=== PATIENT | male | born 1985 | race Caucasian/White ===

== ENCOUNTER 2017-12-01 01:39 | Emergency (ER) | payer SELFPAY ==
[2017-12-01] MEDS ORDERED: HYDROCODONE/APAP 10/325 TAB ONE (02:01)
[2017-12-01 02:25] LABS: Absolute Lymphocytes (CBC) 1.2 K/uL (0.7-4.9); Absolute Monocytes 0.8 K/uL (0.1-1.3); Absolute Neutrophil 11.8 K/uL (1.8-8.0); Basophils % 0.4 % (0-1.3); Eosinophils % 0.4 % (0-4.4); Hematocrit 44.2 % (39.6-49.0); Lymphocytes % 8.3 % (15.3-44.8); MCH 30.6 pg (27.0-35.0); MCV 88.1 fL (80-100); MPV 7.4 fL (7.6-11.3); Monocytes % 5.8 % (3.3-12.3); RBC Red Blood Cell Count 5.02 M/uL (4.33-5.43)
[2017-12-01 02:33] LABS: Potassium 3.4 mmol/L (3.5-5.1)
[2017-12-01] MEDS ORDERED: PIPER/TAZO/NS 3.375gm 3.375 GM/100 ML BAG ONE (02:49)
--- NOTE | 2017-12-01 03:10 | ER ---
Nurse's Notes [facility] Name: Solis Boone Age: 32 yrs Sex: Male : 1985 Arrival Date: 12/01/2017 Time: 01:44 Bed 15 Private MD: Diagnosis: Cellulitis and acute lymphangitis, unspecified Presentation: 12/01 01:52 Presenting complaint: Patient states: left thumb with swelling, redness and pain X2 ak1 days after going fishing. Transition of care: patient was not received from another setting of care. Onset of symptoms was November 28, 2017. Risk Assessment: Do you want to hurt yourself or someone else? Patient reports no desire to harm self or others. Initial Sepsis Screen: Does the patient meet any 2 criteria? No. Patient's initial sepsis screen is negative. Does the patient have a suspected source of infection? No. Patient's initial sepsis screen is negative. Care prior to arrival: None. 01:52 Method Of Arrival: Ambulatory ak1 01:52 Acuity: MANUEL 4 ak1 Triage Assessment: 01:54 General: Appears in no apparent distress. uncomfortable, Behavior is calm, cooperative. ak1 Pain: Complains of pain in left hand. EENT: No signs and/or symptoms were reported regarding the EENT system. Neuro: No deficits noted. Cardiovascular: No deficits noted. Respiratory: No deficits noted. GI: No signs and/or symptoms were reported involving the gastrointestinal system. : No signs and/or symptoms were reported regarding the genitourinary system. Musculoskeletal: Range of motion: limited in IP of left thumb Swelling present in left hand. 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 - Social history:: Smoking status: Patient/guardian denies using tobacco. - Ebola Screening: : No symptoms or risks identified at this time. Screenin:55 Abuse screen: Denies threats or abuse. Denies injuries from another. Nutritional ak1 screening: No deficits noted. Tuberculosis screening: No symptoms or risk factors identified. Fall Risk None identified. Assessment: 02:01 General: See triage assessment. ao 02:56 Reassessment: Patient appears in no apparent distress at this time. Patient and/or ao family updated on plan of care and expected duration. Pain level reassessed. Patient is alert, oriented x 3, equal unlabored respirations, skin warm/dry/pink. 03:27 Reassessment: Phone report called to GUERLINE Hurley. Patient is waiting on EMS for ao transportation. 03:34 Reassessment: Hand off care to [facility]. Patient VS Stable. Patient AOX3. ao Patient had no questions at this time. Vital Signs: 01:51 BP 174 / 120; Pulse 96; Resp 18; Temp 98.1(O); Pulse Ox 100% on R/A; Weight 86.18 kg ak1 (R); Height 6 ft. 2 in. (187.96 cm) (R); Pain 10/10; 02:55 BP 157 / 115; Pulse 98; Resp 18; Pulse Ox 100% ; ao 03:27 BP 158 / 97; Pulse 87; Resp 16; Pulse Ox 100% on R/A; ao 01:51 Body Mass Index 24.39 (86.18 kg, 187.96 cm) ak1 ED Course: 01:44 Patient arrived in ED. es 01:50 Sloan Encarnacion MD is Attending Physician. gs 01:51 Arm band placed on Patient placed in an exam room, on a stretcher, on pulse oximetry, ak1 Patient notified of wait time. 01:53 Triage completed. ak1 01:55 Patient has correct armband on for positive identification. Bed in low position. Call ak1 light in reach. Side rails up X 1. Pulse ox on. NIBP on. 02:00 Randy Brower RN is Primary Nurse. ao 02:29 X-ray completed. Portable x-ray completed in exam room. Patient tolerated procedure mh1 well. 02:29 Hand Left 3 View XRAY In Process Unspecified. EDMS 02:42 initiated a transfer with Johnny at the [facility] transfer line for hand surgery. eb 02:50 connected with ED doctor for pt transfer consultation. eb 02:56 administrative approval given by Víctor Boss, patient to go to the ED for ED eb evaluation. number for report is [phone]. 03:35 No provider procedures requiring assistance completed. Patient transferred, IV remains ao in place. Administered Medications: 02:00 Drug: Madison 10 mg-325 mg 1 tabs Route: PO; ak1 03:00 Follow up: Response: No adverse reaction ao 02:59 Drug: Zosyn 3.375 grams Route: IVPB; Infused Over: 60 mins; Site: right antecubital; ao 03:27 Follow up: IV Status: Completed infusion; IV Intake: 100ml ao 03:26 Drug: vancoMYCIN 1 grams Route: IVPB; Infused Over: 2 hrs; Site: right antecubital; ao 03:37 Follow up: IV Status: Infusion continued upon transfer ao Intake: 03:27 IV: 100ml; Total: 100ml. ao Outcome: 03:10 ER care complete, transfer ordered by . 03:35 Transferred by ground EMS to [facility], Transfer form ao completed. X-rays sent w/ patient. 03:35 Condition: stable 03:35 Instructed on the need for transfer. 03:36 Patient left the ED. ao Signatures: Dispatcher [employer] Monique Parra Martha [facility] Velia Moreland RN RN ny1 Randy Brower RN RN ao Sloan Encarnacion MD MD Breanna Mitchell
--- NOTE | 2017-12-01 03:10 | EDPHYS ---
Physician Documentation [facility] Name: Solis Boone Age: 32 yrs Sex: Male : 1985 Arrival Date: 12/01/2017 Time: 01:44 Bed 15 Private MD: ED Physician Sloan Encarnacion HPI: 12/01 03:05 This 32 yrs old Male presents to ER via Ambulatory with complaints of gs INFECTED THUMB. 03:05 The patient or guardian reports swelling, tenderness. The complaints affect the dorsal gs aspect of distal phalanx of left thumb, dorsal aspect of proximal phalanx of left thumb, palmar aspect of distal phalanx of left thumb and palmar aspect of proximal phalanx of left thumb. Onset: The symptoms/episode began/occurred 1 week(s) ago. Modifying factors: the symptoms are aggravated by movement. Associated signs and symptoms: Pertinent negatives: numbness distally. Severity of symptoms: At their worst the symptoms were severe, in the emergency department the symptoms are unchanged. The patient has not experienced similar symptoms in the past. 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 - Social history:: Smoking status: Patient/guardian denies using tobacco. - Ebola Screening: : No symptoms or risks identified at this time. ROS: 03:05 Constitutional: Positive for fever. gs 03:05 All other systems are negative. Exam: 03:05 Head/Face: Normocephalic, atraumatic. Eyes: Pupils equal round and reactive to light, gs extra-ocular motions intact. Lids and lashes normal. Conjunctiva and sclera are non-icteric and not injected. Cornea within normal limits. Periorbital areas with no swelling, redness, or edema. ENT: Nares patent. No nasal discharge, no septal abnormalities noted. Tympanic membranes are normal and external auditory canals are clear. Oropharynx with no redness, swelling, or masses, exudates, or evidence of obstruction, uvula midline. Mucous membranes moist. Neck: Trachea midline, no thyromegaly or masses palpated, and no cervical lymphadenopathy. Supple, full range of motion without nuchal rigidity, or vertebral point tenderness. No Meningismus. Chest/axilla: Normal chest wall appearance and motion. Nontender with no deformity. No lesions are appreciated. Cardiovascular: Regular rate and rhythm with a normal S1 and S2. No gallops, murmurs, or rubs. Normal PMI, no JVD. No pulse deficits. Respiratory: Lungs have equal breath sounds bilaterally, clear to auscultation and percussion. No rales, rhonchi or wheezes noted. No increased work of breathing, no retractions or nasal flaring. Abdomen/GI: Soft, non-tender, with normal bowel sounds. No distension or tympany. No guarding or rebound. No evidence of tenderness throughout. Back: No spinal tenderness. No costovertebral tenderness. Full range of motion. Neuro: Awake and alert, GCS 15, oriented to person, place, time, and situation. Cranial nerves II-XII grossly intact. Motor strength 5/5 in all extremities. Sensory grossly intact. Cerebellar exam normal. Normal gait. 03:05 Constitutional: The patient appears alert, awake, uncomfortable. 03:05 Musculoskeletal/extremity: Extremities: noted in the palmar aspect of proximal phalanx of left thumb and palmar aspect of distal phalanx of left thumb and dorsal aspect of proximal phalanx of left thumb and dorsal aspect of distal phalanx of left thumb: decreased ROM, erythema, pain, swelling, tenderness, ROM: limited active range of motion due to pain, limited passive range of motion due to pain, Pulses: are normal with no appreciated deficits, Tingling of extremity. 03:05 Skin: cellulitis, that is moderate, on the palmar aspect of proximal phalanx of left thumb and palmar aspect of distal phalanx of left thumb and dorsal aspect of proximal phalanx of left thumb and dorsal aspect of distal phalanx of left thumb. Vital Signs: 01:51 BP 174 / 120; Pulse 96; Resp 18; Temp 98.1(O); Pulse Ox 100% on R/A; Weight 86.18 kg ak1 (R); Height 6 ft. 2 in. (187.96 cm) (R); Pain 10/10; 02:55 BP 157 / 115; Pulse 98; Resp 18; Pulse Ox 100% ; ao 03:27 BP 158 / 97; Pulse 87; Resp 16; Pulse Ox 100% on R/A; ao 01:51 Body Mass Index 24.39 (86.18 kg, 187.96 cm) ak1 MDM: 01:50 Patient medically screened. 03:05 Differential diagnosis: closed fracture, cellulitis, abscess, felon. Data reviewed: vital signs, nurses notes. 12/01 02:00 Order name: CBC with Diff 12/01 02:00 Order name: Basic Metabolic Panel; Complete Time: 02:39 12/01 01:52 Order name: Hand Left 3 View XRAY 12/01 02:55 Order name: NPO; Complete Time: 02:59 Administered Medications: 02:00 Drug: Foster 10 mg-325 mg 1 tabs Route: PO; ak1 03:00 Follow up: Response: No adverse reaction ao 02:59 Drug: Zosyn 3.375 grams Route: IVPB; Infused Over: 60 mins; Site: right antecubital; ao 03:27 Follow up: IV Status: Completed infusion; IV Intake: 100ml ao 03:26 Drug: vancoMYCIN 1 grams Route: IVPB; Infused Over: 2 hrs; Site: right antecubital; ao 03:37 Follow up: IV Status: Infusion continued upon transfer ao Disposition: 12/01/17 03:10 Transfer ordered to [facility]. Diagnosis is Cellulitis and acute lymphangitis, unspecified. - Reason for transfer: Higher level of care. - Accepting physician is rachel. - Condition is Stable. - Problem is new. - Symptoms are unchanged. Signatures: Dispatcher [employer] [facility] Velia Moreland RN RN ak1 Randy Brower RN RN ao Starr, Gregory, MD MD Corrections: (The following items were deleted from the chart) 03:36 03:10 12/01/2017 03:10 Transfer ordered to [facility]. Diagnosis is Cellulitis and ao acute lymphangitis, unspecified. Reason for transfer: Higher level of care. Accepting physician is rachel. Condition is Stable. Problem is new. Symptoms are unchanged.
[2017-12-01] MEDS ORDERED: VANCOMYCIN 1 GM/250 ML BAG ONE (03:20)
[2017-12-01 03:47] VITALS: TEMP 98.1; O2SAT 100
[2017-12-01 03:49] VITALS: BP 158/97
[2017-12-01 03:49] LABS: Blood Morphology Comment NOT SEEN (NOT SEEN); Platelet Estimate ADEQ; Urine White Blood Cell Casts OK
--- NOTE | 2017-12-01 08:32 | RAD REPORT ---
EXAM DESCRIPTION: RAD -Hand Left 3 View - 12/01/2017 2:29 am CLINICAL HISTORY: Left hand pain status post spider bite FINDINGS: No fracture or dislocation is seen. No bony destructive lesion is seen. Soft tissue swelling involves the region of the thenar eminence
== END 2017-12-01 03:36 | disposition short-term general hospital (02) ==
LOC: ER 01:39
DX: L03.012 Cellulitis of left finger (principal); L03.022 Acute lymphangitis of left finger
CPT/HCPCS: 36415; 80048; 85025; 96365; 96375; 99285; J2543; J3370

== ENCOUNTER 2017-12-16 10:12 | Emergency (ER) | payer SELFPAY ==
--- NOTE | 2017-12-16 10:49 | ER ---
Nurse's Notes [facility] Name: Solis Boone Age: 32 yrs Sex: Male : 1985 Arrival Date: 12/16/2017 Time: 10:13 Bed 5 Private MD: Lupillo Puente Diagnosis: Open wound of hand Presentation: 12/16 10:26 Presenting complaint: Patient states: Pt is 1 week s/p left hand surgery, c/o increased hb pain and swelling over last 2 days. SX done at [facility]. Transition of care: patient was not received from another setting of care. Complicating Factors: There are no complicating factors for this patient. Onset of symptoms was December 16, 2017. Risk Assessment: Do you want to hurt yourself or someone else? Patient reports no desire to harm self or others. Initial Sepsis Screen: Does the patient meet any 2 criteria? No. Patient's initial sepsis screen is negative. Does the patient have a suspected source of infection? No. Patient's initial sepsis screen is negative. Care prior to arrival: None. 10:26 Method Of Arrival: [employer] Enforcement: Vick BURNHAM hb 10:26 Acuity: MANUEL 3 hb Triage Assessment: 10:30 General: Appears in no apparent distress. Behavior is calm, cooperative. Pain: Pain hb currently is 7 out of 10 on a pain scale. Neuro: Level of Consciousness is awake, alert, obeys commands, Oriented to person, place, time, situation. Cardiovascular: Capillary refill < 3 seconds Patient's skin is warm and dry. Respiratory: Airway is patent Trachea midline Respiratory effort is even, unlabored, Respiratory pattern is regular, symmetrical. Injury Description: Laceration sustained to left hand is clean, 7.6 to 20 cm long, post surgical x 1 week, not bleeding. Historical: - Allergies: 10:28 No Known Allergies; hb - Home Meds: 10:28 None [Active]; hb - PMHx: 10:28 left kidney only - defect; hb - PSHx: 10:28 Hand - LEFT; hb - Immunization history:: Adult Immunizations up to date, Last tetanus immunization: < 5 years ago. - Social history:: Smoking status: Patient uses tobacco products, smokes one-half pack cigarettes per day. - Ebola Screening: : No symptoms or risks identified at this time. Screenin:29 Abuse screen: Denies threats or abuse. Denies injuries from another. Nutritional hb screening: No deficits noted. Tuberculosis screening: No symptoms or risk factors identified. Fall Risk None identified. Assessment: 10:30 General: see triage assessment. hb 11:24 Reassessment: Patient appears in no apparent distress at this time. No changes from tw2 previously documented assessment. Patient and/or family updated on plan of care and expected duration. Pain level reassessed. Patient is alert, oriented x 3, equal unlabored respirations, skin warm/dry/pink. Vital Signs: 10:26 BP 151 / 105; Pulse 67; Resp 16; Pulse Ox 100% on R/A; Pain 8/10; hb 11:24 BP 136 / 85; Pulse 17; Pulse Ox 100% on R/A; tw2 ED Course: 10:13 Patient arrived in ED. mr 10:13 Lupillo Puente MD is Private Physician. mr 10:20 Fortino Best PA is PHCP. jrJessica 10:20 Eric Garza NP is PHCP. pm1 10:21 Ahmet Shahid MD is Attending Physician. jr8 10:26 Jessica López, GUERLINE is Primary Nurse. hb 10:28 Triage completed. hb 10:28 Arm band placed on right wrist. hb 10:29 Patient has correct armband on for positive identification. Bed in low position. Call hb light in reach. Side rails up X2. [employer] officer at bedside, pt in handcuffs. 11:15 No provider procedures requiring assistance completed. Patient did not have IV access hb during this emergency room visit. Administered Medications: No medications were administered Outcome: 10:49 Discharge ordered by . rach 11:24 Discharged to Law Enforcement tw2 11:24 Condition: stable 11:24 Discharge instructions given to patient, police, Instructed on discharge instructions, follow up and referral plans. Demonstrated understanding of instructions, follow-up care. 11:25 Patient left the ED. tw2 Signatures: Agustina Cameron mr Fortino Best PA PA jrEric Abdi NP TYPEWRITER RIBBON WINDER pm1 Jessica López, RN RN Elizabeth Cortés RN RN tw2
--- NOTE | 2017-12-16 10:50 | EDPHYS ---
Physician Documentation [facility] Name: Solis Boone Age: 32 yrs Sex: Male : 1985 Arrival Date: 12/16/2017 Time: 10:13 Bed 5 Private MD: Lupillo Puente ED Physician Ahmet Shahid HPI: 12/16 10:43 This 32 yrs old Male presents to ER via Law Enforcement with complaints of jr8 open wound to left hand. 10:43 Onset: The symptoms/episode began/occurred acutely, 1 week(s) ago. Severity of jr8 symptoms: At their worst the symptoms were moderate. The patient has not experienced similar symptoms in the past. The patient has been recently seen by a physician:. Patient was admitted to [facility] for open debridement of left hand secondary to infection. Patient stated that after surgery had left AMA so no follow up has been completed. Came to ED today under police custody. Needed evaluation of hand before being accepted into custodial . Historical: - Allergies: 10:28 No Known Allergies; hb - Home Meds: 10:28 None [Active]; hb - PMHx: 10:28 left kidney only - defect; hb - PSHx: 10:28 Hand - LEFT; hb - Immunization history:: Adult Immunizations up to date, Last tetanus immunization: < 5 years ago. - Social history:: Smoking status: Patient uses tobacco products, smokes one-half pack cigarettes per day. - Ebola Screening: : No symptoms or risks identified at this time. ROS: 10:43 Eyes: Negative for injury, pain, redness, and discharge, ENT: Negative for injury, jr8 pain, and discharge, Neck: Negative for injury, pain, and swelling, Cardiovascular: Negative for chest pain, palpitations, and edema, Respiratory: Negative for shortness of breath, cough, wheezing, and pleuritic chest pain, Abdomen/GI: Negative for abdominal pain, nausea, vomiting, diarrhea, and constipation, Back: Negative for injury and pain, Skin: Negative for injury, rash, and discoloration, Neuro: Negative for headache, weakness, numbness, tingling, and seizure. 10:43 MS/extremity: Positive for open wound left hand. Exam: 10:43 Cardiovascular: Regular rate and rhythm with a normal S1 and S2. No gallops, murmurs, jr8 or rubs. Normal PMI, no JVD. No pulse deficits. Respiratory: Lungs have equal breath sounds bilaterally, clear to auscultation and percussion. No rales, rhonchi or wheezes noted. No increased work of breathing, no retractions or nasal flaring. Skin: Warm, dry with normal turgor. Normal color with no rashes, no lesions, and no evidence of cellulitis. Neuro: Awake and alert, GCS 15, oriented to person, place, time, and situation. Cranial nerves II-XII grossly intact. Motor strength 5/5 in all extremities. Sensory grossly intact. Cerebellar exam normal. Normal gait. 10:43 Musculoskeletal/extremity: Patient has surgical incision to hawthorne aspect left hand that extends midway up thumb and goes down through the thenar region of left hand. Wound open for secondary healing. Tissue is pink with no discharge. Surrounding epidermal skin without erythema/cellulitis. Patient has full range of motion to hand with no numbness, tingling. Minimal pain present. Pulses 2 + in wrist . Vital Signs: 10:26 BP 151 / 105; Pulse 67; Resp 16; Pulse Ox 100% on R/A; Pain 8/10; hb 11:24 BP 136 / 85; Pulse 17; Pulse Ox 100% on R/A; tw2 MDM: 10:21 Patient medically screened. jr8 10:43 Data reviewed: vital signs, nurses notes, and as a result, I will discharge patient. jr8 Data interpreted: Pulse oximetry: on room air is 100 %. Interpretation: normal. Counseling: I had a detailed discussion with the patient and/or guardian regarding: the historical points, exam findings, and any diagnostic results supporting the discharge/admit diagnosis, the need for outpatient follow up, a hand specialist, to return to the emergency department if symptoms worsen or persist or if there are any questions or concerns that arise at home. ED course: Discussed with patient that there is no signs for acute infection. Will need what sutures he does have to be cut out in a few more days. Otherwise wound will need to continue to heal secondarily without primary closure. To watch for infection. To keep clean and dressed. Patient is good with this and will follow up . Administered Medications: No medications were administered Disposition: 19:06 Co-signature as Attending Physician, Ahmet Shahid MD. rn Disposition: 12/16/17 10:49 Discharged to Home. Impression: Open wound of hand. - Condition is Stable. - Discharge Instructions: Wound Care, Surgical Wound Debridement, Surgical Wound Debridement, Care After. - Medication Reconciliation Form, Thank You Letter, Antibiotic Education, Prescription Opioid Use form. - Follow up: Private Physician; When: 1 week; Reason: Wound Recheck, Recheck today's complaints, Continuance of care, Re-evaluation by your physician. - Problem is new. - Symptoms are unchanged. Signatures: Ahmet Shahid MD MD rn Fortino Best PA PA jr8 Jessica López RN RN Elizabeth Cortés RN RN tw2 Corrections: (The following items were deleted from the chart) 11:25 10:49 12/16/2017 10:49 Discharged to Home. Impression: Open wound of hand. Condition is tw2 Stable. Forms are Medication Reconciliation Form, Thank You Letter, Antibiotic Education, Prescription Opioid Use. Follow up: Private Physician; When: 1 week; Reason: Wound Recheck, Recheck today's complaints, Continuance of care, Re-evaluation by your physician. Problem is new. Symptoms are unchanged. jr8
[2017-12-16 11:29] VITALS: O2SAT 100
[2017-12-16 11:30] VITALS: BP 136/85
== END 2017-12-16 11:25 | disposition home or self-care (01) ==
LOC: ER 10:12
DX: S61.402A Unspecified open wound of left hand, initial encounter (principal); F17.210 Nicotine dependence, cigarettes, uncomplicated
CPT/HCPCS: 99281

== ENCOUNTER 2021-11-12 06:15 | Emergency (ER) | payer SELFPAY ==
--- OUTSIDE RECORDS SUMMARY | 2021-11-12 06:18 | XMS REPORT | Continuity of Care Document ---
:1985 Author Organization [facility] t Address [address] [place] [address] Care Team Providers Name Role Phone Kwame Primary Care Physician JOSE MARIA_S Attending Clinician Unavailable ALIDA, S Attending Clinician Unavailable Alida DORAN, S Attending Clinician Jose Maria Attending Clinician [phone] JOSE MARIA_S Admitting Clinician Unavailable Payers Payer Name Policy Type Policy Number Effective Date Expiration Date S lio [place] [id number] [place] ([place]) Problems Condition Condition Condition Status Onset Resolution Last Treating Co mments Source Name Details Category Date Date Treatment Clinician Date Hand pain, Hand pain, Disease Active U nivers left left 12-01 ity of 00:00: [place] [address] [facility] Allergies, Adverse Reactions, Alerts Allergy Allergy Status Severity Reaction(s) Onset Inactive Treating Comm ents Source Name Type Date Date Clinician NO KNOWN Drug Active Univers ALLERGIE Class ity of S Formerly [facility] Social History Social Habit Start Date Stop Date Quantity Comments Source Alcohol intake 2021-08-19 2021-08-19 [facility] 00:00:00 00:00:00 Medical Branch Sex Assigned At [birth year] [facility] 00:00:00 00:00:00 Medical Branch Smoking Status Start Date Stop Date Source Never smoker [facility] Medications Ordered Filled Start Stop Current Ordering Indication Dosage Frequency Signature Comments Components Source Medication Medication Date Date Medication? Clinician (SIG) Name Name No known No Univers medications 08-19 ity of 16:00: [address] Vital Signs Vital Name Observation Time Observation Value Comments Source Systolic blood 2021-08-19 20:34:00 186 mm[Hg] Univer sity of pressure [facility] Diastolic blood 2021-08-19 20:34:00 117 mm[Hg] Unive rsity of [facility] Heart rate 2021-08-19 20:34:00 76 /min [facility] Body temperature 2021-08-19 20:34:00 35.72 [facility] Respiratory rate 2021-08-19 20:34:00 20 /min [facility] height 2021-08-19 20:34:00 188 cm [facility] Body weight 2021-08-19 20:34:00 86.183 kg [facility] BMI 2021-08-19 20:34:00 24.39 kg/m2 [facility] Oxygen saturation in 2021-08-19 20:34:00 100 /min [facility] blood by [facility] Pulse oximetry Branch Procedures Procedure Date / Time Performed Performing Clinician [facility] e NOTICE OF PRIVACY 2021-08-19 20:32:57 Doctor Unassigned, No Univ [facility] PRACTICES Name [facility] Encounters Start End Encounter Admission Attending Care Care Encounter Source Date/Time Date/Time Type Type Clinicians Facility Department ID 2021-11-07 2021-11-07 Outpatient [facility] [id number] [facility] 01:24:00 01:24:00 06[facility] 2021-10-03 2021-10-03 Outpatient [facility] [id number] [facility] 02:10:00 02:10:00 0507 [facility] 2021-08-29 2021-08-29 Outpatient [facility] [id number] [facility] 02:25:00 02:25:00 0402 [facility] 2021-08-19 2021-08-19 Emergency X ALIDA [facility] ERT [id number] Univers 15:42:00 16:28:00 ECHO [facility] 2021-08-19 2021-08-19 Emergency Alida [facility] [id number] Univers 15:42:00 16:28:00 Echo [facility] [place] [id number] i ty [facility] [id number] [facility] [id number] [address] 2021-08-13 2021-08-13 Outpatient [facility] [id number] [facility] 05:20:00 05:20:00 0317 [facility] 2021-08-11 2021-08-11 Outpatient [facility] [id number] [facility] 05:08:00 05:08:00 0315 [facility] 2021-08-11 2021-08-11 [id number] 00:00:00 00:00:00 Ana [id number] Results This patient has no known results.
[2021-11-12 06:51] LABS: Absolute Lymphocytes (CBC) 1.5 K/uL (0.7-4.9); Hematocrit 39.3 % (39.6-49.0); Lymphocytes % 10.8 % (15.3-44.8); MPV 6.5 fL (7.6-11.3); RBC Red Blood Cell Count 4.59 M/uL (4.33-5.43)
[2021-11-12] MEDS ORDERED: NA CHLORIDE 0.9% 50 ML ONE (06:53)
[2021-11-12] MEDS ORDERED: KETOROLAC 30 MG/ML INJ ONE (06:53)
[2021-11-12] MEDS ORDERED: NA CHLORIDE 0.9% 500 ML ONE (06:53)
[2021-11-12] MEDS ORDERED: CEFTRIAXONE 1000 MG/VIAL ONE (06:53)
[2021-11-12 07:08] LABS: Bilirubin Total 0.8 mg/dL (0.2-1.0); Potassium 3.8 mmol/L (3.5-5.1); Protein, Total 7.8 g/dL (6.4-8.2)
--- NOTE | 2021-11-12 07:32 | EDPHYS ---
Physician Documentation [facility] Name: Solis Boone Age: 36 yrs Sex: Male : 1985 Arrival Date: 11/12/2021 Time: 06:18 Bed 8 Private MD: ED Physician Jacinto Preciado HPI: 11/12 07:25 This 36 yrs old Male presents to ER via Ambulatory with complaints of deborah Testicular Swelling, Testicular Pain. 07:25 The patient presents with swelling, that is moderate, of the right testicle, deborah tenderness. Onset: The symptoms/episode began/occurred last night. Modifying factors: The symptoms are alleviated by remaining still, the symptoms are aggravated by movement, pressure. Associated signs and symptoms: Pertinent positives: abdominal pain. Severity of symptoms: At their worst the symptoms were mild, moderate, in the emergency department the symptoms are unchanged. The patient has not experienced similar symptoms in the past. 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 - Social history:: Smoking status: Patient denies any tobacco usage or history of. Patient/guardian denies using alcohol, street drugs. ROS: 07:26 Constitutional: Negative for fever, chills, and weight loss, Eyes: Negative for injury, deborah pain, redness, and discharge, ENT: Negative for injury, pain, and discharge, Neck: Negative for injury, pain, and swelling, Cardiovascular: Negative for chest pain, palpitations, and edema, Respiratory: Negative for shortness of breath, cough, wheezing, and pleuritic chest pain, Abdomen/GI: Negative for abdominal pain, nausea, vomiting, diarrhea, and constipation, Back: Negative for injury and pain, MS/Extremity: Negative for injury and deformity, Skin: Negative for injury, rash, and discoloration, Neuro: Negative for headache, weakness, numbness, tingling, and seizure, Psych: Negative for depression, anxiety, suicide ideation, homicidal ideation, and hallucinations, Allergy/Immunology: Negative for hives, rash, and allergies, Endocrine: Negative for neck swelling, polydipsia, polyuria, polyphagia, and marked weight changes, Hematologic/Lymphatic: Negative for swollen nodes, abnormal bleeding, and unusual bruising. 07:26 : Positive for urinary symptoms, testicular pain of the right testicle. Exam: 07:26 Constitutional: This is a well developed, well nourished patient who is awake, alert, deborah and in no acute distress. Head/Face: Normocephalic, atraumatic. Eyes: Pupils equal round and reactive to light, extra-ocular motions intact. Lids and lashes normal. Conjunctiva and sclera are non-icteric and not injected. Cornea within normal limits. Periorbital areas with no swelling, redness, or edema. ENT: Nares patent. No nasal discharge, no septal abnormalities noted. Tympanic membranes are normal and external auditory canals are clear. Oropharynx with no redness, swelling, or masses, exudates, or evidence of obstruction, uvula midline. Mucous membranes moist. Neck: Trachea midline, no thyromegaly or masses palpated, and no cervical lymphadenopathy. Supple, full range of motion without nuchal rigidity, or vertebral point tenderness. No Meningismus. Chest/axilla: Normal chest wall appearance and motion. Nontender with no deformity. No lesions are appreciated. Cardiovascular: Regular rate and rhythm with a normal S1 and S2. No gallops, murmurs, or rubs. Normal PMI, no JVD. No pulse deficits. Respiratory: Lungs have equal breath sounds bilaterally, clear to auscultation and percussion. No rales, rhonchi or wheezes noted. No increased work of breathing, no retractions or nasal flaring. Abdomen/GI: Soft, non-tender, with normal bowel sounds. No distension or tympany. No guarding or rebound. No evidence of tenderness throughout. Back: No spinal tenderness. No costovertebral tenderness. Full range of motion. Skin: Warm, dry with normal turgor. Normal color with no rashes, no lesions, and no evidence of cellulitis. MS/ Extremity: Pulses equal, no cyanosis. Neurovascular intact. Full, normal range of motion. Neuro: Awake and alert, GCS 15, oriented to person, place, time, and situation. Cranial nerves II-XII grossly intact. Motor strength 5/5 in all extremities. Sensory grossly intact. Cerebellar exam normal. Normal gait. Psych: Awake, alert, with orientation to person, place and time. Behavior, mood, and affect are within normal limits. 07:26 : CVA tenderness, is absent, Male external genitalia: Circumcision noted. swelling: tenderness, of the right testicle is noted, Bladder: is normal, Sexual behavior: the patient is sexually active. 07:26 Musculoskeletal/extremity: ROM: no acute changes, intact in all extremities, full active range of motion, full passive range of motion, Circulation is intact in all extremities. Sensation intact. Compartment Syndrome exam of affected extremity: is normal. Vital Signs: 06:44 BP 153 / 101; Pulse 92; Resp 16; Temp 98.4(O); Pulse Ox 100% on R/A; Weight 83.91 kg lg3 (R); Height 6 ft. 2 in. (187.96 cm) (R); Pain 6/10; 08:00 BP 160 / 98; Pulse 86; Resp 17; Pulse Ox 100% ; Pain 3/10; jh6 06:44 Body Mass Index 23.75 (83.91 kg, 187.96 cm) lg3 MDM: 06:22 Patient medically screened. deborah 07:28 Differential diagnosis: nonspecific abdominal pain, UTI, prostatitis, urethritis. Data deborah reviewed: vital signs, nurses notes, lab test result(s), radiologic studies, ultrasound. Data interpreted: nurse monitoring: rate is 92 beats/min, rhythm is regular, Pulse oximetry: on room air is 100 %. Counseling: I had a detailed discussion with the patient and/or guardian regarding: the historical points, exam findings, and any diagnostic results supporting the discharge/admit diagnosis, lab results, radiology results, the need for outpatient follow up, for definitive care, a family practitioner, a urologist. 11/12 06:22 Order name: CBC with Diff; Complete Time: 07:32 deborah 11/12 06:22 Order name: Comprehensive Metabolic Panel; Complete Time: 07:32 deborah 11/12 06:22 Order name: US Scrotum Testicles [facility] 11/12 07:44 Order name: Urine Dipstick-Ancillary EDMS 11/12 06:22 Order name: Urine Dipstick-Ancillary (obtain specimen) deborah Administered Medications: 06:56 Drug: NS 0.9% 500 ml Route: IV; Rate: bolus; Site: right antecubital; 5 07:30 Follow up: IV Status: Completed infusion jh6 06:56 Drug: Ketorolac 30 mg Route: IVP; Site: right antecubital; 5 07:04 Follow up: Response: No adverse reaction lg3 08:10 Follow up: Response: Pain is decreased 6 06:56 Drug: Rocephin (cefTRIAXone) 1 grams Route: IV; Rate: per protocol; Site: right sm5 antecubital; 07:35 Follow up: IV Status: Completed infusion jh6 07:39 Drug: Zithromax (azithromycin) 1 grams Route: PO; jh6 08:10 Follow up: Response: No adverse reaction 6 Disposition Summary: 11/12/21 07:32 Discharge Ordered Location: Home [facility] Problem: new deborah Symptoms: have improved deborah Condition: Stable deborah Diagnosis - Epididymitis deborah - Epididymo-orchitis deborah - Hydrocele, unspecified - complex deborah Followup: deborah - With: Private Physician - When: 2 - 3 days - Reason: Recheck today's complaints, Continuance of care, Re-evaluation by your physician Followup: deborah - With: - When: 2 - 3 days - Reason: Recheck today's complaints, Continuance of care, Re-evaluation by your physician Discharge Instructions: - Discharge Summary Sheet deborah - Epididymitis deborah - Orchitis [facility] Forms: - Medication Reconciliation Form deborah - Thank You Letter deborah - Antibiotic Education deborah - Prescription Opioid Use [facility] Prescriptions: - Ibuprofen 600 mg Oral Tablet - take 1 tablet by ORAL route every 6 hours As needed take with food; 30 tablet; [facility] Refills: 0, Product Selection Permitted - Doxycycline Hyclate 100 mg Oral Tablet - take 1 tablet by ORAL route every 12 hours; 20 tablet; Refills: 0, Product [facility] Selection Permitted Signatures: Dispatcher [employer] Jacinto aWre MD MD cha Gibson, Lacie, RN RN lg3 Gabby Coy RN RN jh6 Magda Hutton RN RN sm5
--- NOTE | 2021-11-12 07:32 | ER ---
Nurse's Notes [facility] Name: Solis Boone Age: 36 yrs Sex: Male : 1985 Arrival Date: 11/12/2021 Time: 06:18 Bed 8 Private MD: Diagnosis: Epididymitis;Epididymo-orchitis;Hydrocele, unspecified-complex Presentation: 11/12 06:44 Chief complaint: Patient states: i think i have a right sided testicular hernia but i lg3 have not seen a doctor for this. my right testicle became painful and started swelling around 1999 yesterday and then my left one started doing the same thing so now they are both swollen and painful. pain scale 6/10. Coronavirus screen: Client denies travel out of the [place] in the last 14 days. At this time, the client does not indicate any symptoms associated with coronavirus-19. Ebola Screen: No symptoms or risks identified at this time. Initial Sepsis Screen: Does the patient meet any 2 criteria? No. Patient's initial sepsis screen is negative. Does the patient have a suspected source of infection? No. Patient's initial sepsis screen is negative. Risk Assessment: Do you want to hurt yourself or someone else? Patient reports no desire to harm self or others. Onset of symptoms was November 11, 2021 at 20:00. 06:44 Method Of Arrival: Ambulatory 3 06:44 Acuity: MANUEL 3 lg3 Triage Assessment: 06:47 General: Appears in no apparent distress. uncomfortable, Behavior is calm, cooperative. lg3 Pain: Complains of pain in groin Pain currently is 6 out of 10 on a pain scale. EENT: No deficits noted. No signs and/or symptoms were reported regarding the EENT system. Neuro: No deficits noted. Valentino Agitation-Sedation Scale (RASS): 0 - Alert and Calm Level of Consciousness is awake, alert, obeys commands, Oriented to person, place, time, situation. Cardiovascular: No deficits noted. Denies chest pain, shortness of breath, Capillary refill < 3 seconds Clubbing of nail beds is absent JVD is absent Patient's skin is warm and dry. Respiratory: No deficits noted. Airway is patent Trachea midline Respiratory effort is even, unlabored, Respiratory pattern is regular, symmetrical. GI: No deficits noted. Abdomen is flat, non-distended, Reports constipation. : Reports Scrotal pain: sudden onset. Derm: No deficits noted. No signs and/or symptoms reported regarding the dermatologic system. Skin is intact, is healthy with good turgor, Skin is dry, Skin temperature is warm. Musculoskeletal: No deficits noted. No signs and/or symptoms reported regarding the musculoskeletal system. Circulation, motion, and sensation intact. Range of motion: intact in all extremities. 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 - Social history:: Smoking status: Patient denies any tobacco usage or history of. Patient/guardian denies using alcohol, street drugs. Screenin:49 Abuse screen: Denies threats or abuse. Denies injuries from another. Nutritional lg3 screening: No deficits noted. Tuberculosis screening: No symptoms or risk factors identified. Fall Risk None identified. Assessment: 06:51 General: see triage assessment . lg3 Vital Signs: 06:44 BP 153 / 101; Pulse 92; Resp 16; Temp 98.4(O); Pulse Ox 100% on R/A; Weight 83.91 kg lg3 (R); Height 6 ft. 2 in. (187.96 cm) (R); Pain 6/10; 08:00 BP 160 / 98; Pulse 86; Resp 17; Pulse Ox 100% ; Pain 3/10; jh6 06:44 Body Mass Index 23.75 (83.91 kg, 187.96 cm) lg3 ED Course: 06:18 Patient arrived in ED. bp1 06:20 Jacinto Preciado MD is Attending Physician. deborah 06:44 Divya Hayes RN is Primary Nurse. lg3 06:47 Triage completed. lg3 06:47 Arm band placed on right wrist. lg3 06:49 Patient has correct armband on for positive identification. Bed in low position. Call 3 light in reach. Client placed on continuous cardiac and pulse oximetry monitoring. NIBP monitoring applied. Door closed. Noise minimized. Warm blanket given. 06:49 Inserted saline lock: 20 gauge in right antecubital area, using aseptic technique. lg3 Blood collected. 06:50 CBC with Diff Sent. lg3 06:50 Comprehensive Metabolic Panel Sent. lg3 07:21 US Scrotum Testicles In Process Unspecified. [facility] 07:30 Luke Coronel MD is Referral Physician. [facility] 08:09 IV discontinued, intact, bleeding controlled, No redness/swelling at site. Pressure 6 dressing applied. 08:09 No provider procedures requiring assistance completed. 6 Administered Medications: 06:56 Drug: NS 0.9% 500 ml Route: IV; Rate: bolus; Site: right antecubital; 5 07:30 Follow up: IV Status: Completed infusion [facility] 06:56 Drug: Ketorolac 30 mg Route: IVP; Site: right antecubital; 5 07:04 Follow up: Response: No adverse reaction 3 08:10 Follow up: Response: Pain is decreased [facility] 06:56 Drug: Rocephin (cefTRIAXone) 1 grams Route: IV; Rate: per protocol; Site: right 5 antecubital; 07:35 Follow up: IV Status: Completed infusion [facility] 07:39 Drug: Zithromax (azithromycin) 1 grams Route: PO; jh6 08:10 Follow up: Response: No adverse reaction [facility] Medication: 06:59 VIS not applicable for this client. [facility] Outcome: 07:32 Discharge ordered by . [facility] 08:09 Discharged to home ambulatory. [facility] 08:09 Condition: good 08:09 Discharge instructions given to patient, Instructed on discharge instructions, Demonstrated understanding of instructions, medications, Prescriptions given X 2. 08:10 Patient left the ED. [facility] Signatures: Dispatcher [employer] Jacinto Ware MD MD cha Gibson, Lacie, RN RN lg3 Dari Mahoney Jennifer, RN RN 6 Magda Hutton, RN RN 5
[2021-11-12 07:43] LABS: Urine Blood Negative (Negative); Urine Glucose Negative (Negative); Urine Protein Trace (Negative); Urine Specific Gravity >=1.030 (1.005-1.030)
[2021-11-12] MEDS ORDERED: AZITHROMYCIN 250 MG TAB ONE (07:43)
[2021-11-12 08:16] VITALS: TEMP 98.4; O2SAT 100
[2021-11-12 08:18] VITALS: BP 160/98
--- NOTE | 2021-11-12 08:53 | RAD REPORT ---
EXAM DESCRIPTION: US - Scrotum Testicles - 11/12/2021 7:24 am CLINICAL HISTORY: PAIN COMPARISON: No comparisons FINDINGS: The right testicle 4.7 x 2.8 x 2.8 cm. No intratesticular masses or evidence of testicular torsion. The left testicle 5.8 x 3.7 x 2.8 cm. No intratesticular masses or evidence of testicular torsion. Right epididymis appears enlarged with increased blood flow, compatible with epididymitis. Mildly complex right hydrocele. IMPRESSION: Right-sided epididymitis suspected. Complex appearing right hydrocele is present.
== END 2021-11-12 08:10 | disposition home or self-care (01) ==
LOC: ER 06:15
DX: N45.1 Epididymitis (principal); N45.3 Epididymo-orchitis; N43.3 Hydrocele, unspecified
CPT/HCPCS: 36415; 76870; 80053; 81003; 85025; 96365; 96375; 99284; J7040

== ENCOUNTER 2024-07-17 00:06 | Emergency (ER) | payer SELFPAY ==
[2024-07-17] MEDS ORDERED: CEFEPIME 2 GM VIAL ONE (00:56)
[2024-07-17] MEDS ORDERED: ONDANSETRON 4 MG/2 ML VIAL ONE (00:56)
[2024-07-17] MEDS ORDERED: VANCOMYCIN 1 GM/VIAL ONE (00:56)
[2024-07-17] MEDS ORDERED: KETOROLAC 30 MG/ML INJ ONE (00:56)
[2024-07-17] MEDS ORDERED: NA CHLORIDE 0.9% 100 ML ONE (00:56)
[2024-07-17] MEDS ORDERED: NA CHLORIDE 0.9% 500 ML ONE (00:56)
[2024-07-17 01:15] LABS: Absolute Eosinophils 0.1 K/uL (0-0.5); Absolute Lymphocytes (CBC) 1.9 K/uL (0.7-4.9); Absolute Monocytes 0.7 K/uL (0.1-1.3); Absolute Neutrophil 6.2 K/uL (1.8-8.0); Basophils % 0.5 % (0-1.3); Eosinophils % 1.4 % (0-4.4); Hematocrit 39.1 % (39.6-49.0); Hemoglobin 13.7 g/dL (13.6-17.9); Lymphocytes % 20.7 % (15.3-44.8); MCH 30.2 pg (27.0-35.0); MCV 86.2 fL (80-100); MPV 6.9 fL (7.6-11.3); Monocytes % 8.1 % (3.3-12.3); Neutrophils % 69.3 % (41.7-73.7); Platelets 338 thou/uL (152-406); RBC Red Blood Cell Count 4.53 M/uL (4.33-5.43); Red Cell Distribution Width 13.4 % (12.1-15.2)
[2024-07-17 01:16] LABS: PT Prothrombin Time 13.3 SECONDS (9.4-12.5); PTT, Activated Partial Thromb 34.2 SECONDS (24.3-36.9); Protime INR 1.27
[2024-07-17 01:25] LABS: Albumin 3.3 g/dL (3.4-5.0); Anion Gap 8.1 mEq/L (5.0-15.0); Bilirubin Total 0.8 mg/dL (0.2-1.0); Globulin 3.4 g/dL (2.3-3.5); Potassium 3.1 mEq/L (3.5-5.1); Protein, Total 6.7 g/dL (6.4-8.2)
--- NOTE | 2024-07-17 04:25 | ER ---
Nurse's Notes [facility] Name: Solis Boone Age: 39 yrs Sex: Male : 1985 Arrival Date: 07/17/2024 Time: 00:06 Bed 8 Private MD: Diagnosis: Right hand Cellulitis , Infection Right index finger ;Infected puncture wound right index finger Presentation: 07/17 00:18 Chief complaint: Patient states: jammed finger on Tuesday but now its all red and lg3 swollen. I don't know if i cut it on a barnacle or something. Coronavirus screen: Client denies travel out of the [place] in the last 14 days. At this time, the client does not indicate any symptoms associated with coronavirus-19. Ebola Screen: No symptoms or risks identified at this time. Initial Sepsis Screen: Does the patient meet any 2 criteria? No. Patient's initial sepsis screen is negative. Does the patient have a suspected source of infection? No. Patient's initial sepsis screen is negative. Risk Assessment: Do you want to hurt yourself or someone else? Patient reports no desire to harm self or others. Onset of symptoms is unknown. 00:18 Method Of Arrival: Ambulatory lg3 00:18 Acuity: MANUEL 3 lg3 Triage Assessment: 00:20 General: Appears in no apparent distress. comfortable, Behavior is calm, cooperative. lg3 Pain: Complains of pain in right hand. EENT: No deficits noted. No signs and/or symptoms were reported regarding the EENT system. Neuro: No deficits noted. Valentino Agitation-Sedation Scale (RASS): 0 - Alert and Calm Level of Consciousness is awake, alert, obeys commands, Oriented to person, place, time, situation. Cardiovascular: No deficits noted. Denies chest pain, shortness of breath, Capillary refill < 3 seconds Clubbing of nail beds is absent JVD is absent Patient's skin is warm and dry. Respiratory: No deficits noted. Airway is patent Respiratory effort is even, unlabored, Respiratory pattern is regular, symmetrical. GI: No deficits noted. No signs and/or symptoms were reported involving the gastrointestinal system. : No signs and/or symptoms were reported regarding the genitourinary system. Derm: Skin is intact, is healthy with good turgor, Skin is dry, Skin is normal, Skin temperature is warm. Musculoskeletal: Circulation, motion, and sensation intact. Range of motion: intact in all extremities, Swelling present in right index finger. 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 - Infectious Disease History:: Denies. - Social history:: Smoking status: Reported history of juuling and/or vaping. Patient uses alcohol, occasionally. Patient/guardian denies using street drugs. - Family history:: not pertinent. Screenin:16 [facility] ED Fall Risk Assessment (Adult) History of falling in the last 3 months, bm8 including since admission No falls in past 3 months (0 pts) Confusion or Disorientation No (0 pts) Intoxicated or Sedated No (0 pts) Impaired Gait No (0 pts) Mobility Assist Device Used No (0 pt) Altered Elimination No (0 pt) Score/Fall Risk Level 0 - 2 = Low Risk Oriented to surroundings, Maintained a safe environment, Educated pt \T\ family on fall prevention, incl call for assistance when getting out of bed, Assessed \T\ reinforced patient's understanding of fall precautions, Hourly rounding (assess needs \T\ fall precautionary measures) done, Used ambulatory aids as needed (educated on \T\ assisted with), Used gait belt as appropriate. Abuse screen: Denies threats or abuse. Nutritional screening: No deficits noted. Tuberculosis screening: No symptoms or risk factors identified. Assessment: 00:40 Reassessment: Patient appears in no apparent distress at this time. bm8 01:16 General: Appears in no apparent distress. comfortable, Behavior is calm, cooperative, bm8 appropriate for age. Pain: Complains of pain in right index finger and right hand Pain currently is 7 out of 10 on a pain scale. Quality of pain is described as throbbing. Neuro: No deficits noted. Level of Consciousness is awake, alert, obeys commands, Oriented to person, place, time, situation, Appropriate for age. Cardiovascular: Capillary refill < 3 seconds in bilateral fingers Patient's skin is warm and dry. Respiratory: Airway is patent Respiratory effort is even, unlabored, Respiratory pattern is regular, symmetrical, Breath sounds are clear bilaterally. GI: No signs and/or symptoms were reported involving the gastrointestinal system. : No signs and/or symptoms were reported regarding the genitourinary system. EENT: No signs and/or symptoms were reported regarding the EENT system. Derm: No signs and/or symptoms reported regarding the dermatologic system. Musculoskeletal: Reports pain in right index finger and right hand swelling to right hand and index finger. 03:11 Reassessment: Patient and/or family updated on plan of care and expected duration. Pain bm8 level reassessed. pt is resting with eyes closed breathing is even unlabored with symmetrical rise and fall of chest. 04:06 Reassessment: Patient appears in no apparent distress at this time. No changes from bm8 previously documented assessment. Patient and/or family updated on plan of care and expected duration. Pain level reassessed. Patient states feeling better. Patient states symptoms have improved. Vital Signs: 00:18 BP 153 / 86; Pulse 106; Resp 17 S; Temp 98.4(O); Pulse Ox 100% on R/A; Weight 95.25 kg lg3 (R); Height 6 ft. 2 in. (R); Pain 5/10; 01:16 BP 123 / 86; Pulse 93; Resp 17; Temp 98.4; Pulse Ox 100% ; Pain 7/10; bm8 03:11 BP 134 / 89; Pulse 74; Resp 17; Temp 98.4; Pulse Ox 98% ; Pain 0/10; bm8 04:06 BP 141 / 94; Pulse 81; Resp 16; Temp 98.4; Pulse Ox 100% ; Pain 0/10; bm8 00:18 Body Mass Index 26.96 (95.25 kg, 187.96 cm) lg3 00:18 Pain Scale: Adult lg3 01:16 Pain Scale: Adult bm8 03:11 Pain Scale: Adult bm8 04:06 Pain Scale: Adult bm8 [place] Coma Score: 01:16 Eye Response: spontaneous(4). Motor Response: obeys commands(6). Verbal Response: bm8 oriented(5). Total: 15. 03:11 Eye Response: spontaneous(4). Motor Response: obeys commands(6). Verbal Response: bm8 oriented(5). Total: 15. 04:06 Eye Response: spontaneous(4). Motor Response: obeys commands(6). Verbal Response: bm8 oriented(5). Total: 15. 22:21 Eye Response: spontaneous(4). Motor Response: obeys commands(6). Verbal Response: sp4 oriented(5). Total: 15. ED Course: 00:07 Patient arrived in ED. jj6 00:08 Valentin Saab MD is Attending Physician. sp4 00:20 Triage completed. lg3 00:20 Arm band placed on left wrist. lg3 00:35 JULIETA MILLIGAN, GUERLINE is Primary Nurse. dd2 00:40 No provider procedures requiring assistance completed. Initial lab(s) drawn, by triny ray sent to lab. First set of blood cultures drawn. Inserted saline lock: 18 gauge in left antecubital area, using aseptic technique. Blood collected. Flushed with 10 mL NS. Patient maintains SpO2 saturation greater than 95% on room air. 01:15 Hand Right 3 View XRAY In Process Unspecified. EDMS 01:16 Patient has correct armband on for positive identification. Placed in gown. Bed in low bm8 position. Call light in reach. Side rails up X 1. Client placed on continuous cardiac and pulse oximetry monitoring. NIBP monitoring applied. Pulse ox on. NIBP on. Door closed. Noise minimized. Warm blanket given. Pillow given. 04:35 Provided Education on: post er care. bm8 04:35 intact, bleeding controlled, No redness/swelling at site. Pressure dressing applied. bm8 Administered Medications: 01:12 Drug: Cefepime IVPB 2 grams IVPB at 200 ml/hr once over 30 mins; (mix in NS 100 mL) bm8 Route: IVPB; Rate: 200 ml/hr; Infused Over: 30 mins; Site: left antecubital; 01:55 Follow up: Response: No adverse reaction; IV Status: Completed infusion; IV Intake: bm8 100ml 01:12 Drug: Ketorolac IVP 30 mg IVP once Route: IVP; Site: left antecubital; bm8 03:13 Follow up: Response: No adverse reaction bm8 01:12 Drug: Ondansetron IVP 4 mg IVP once; over 2 minutes Route: IVP; Site: left antecubital; bm8 03:13 Follow up: Response: No adverse reaction bm8 01:56 Drug: vancoMYCIN IVPB 2 grams IVPB at calculated rate once Route: IVPB; Rate: bm8 calculated rate; Site: left antecubital; 04:06 Follow up: Response: No adverse reaction; IV Status: Completed infusion; IV Intake: bm8 500ml 04:35 Drug: Boostrix Tdap IM 0.5 ml IM once; as a single dose Route: IM; Site: left deltoid; bm8 04:35 Follow up: Response: No adverse reaction; Medication Administered at Departure bm8 Medication: 01:16 VIS not applicable for this client. bm8 04:35 Vaccine Information Statement (VIS) provided today. Questions and/or concerns bm8 addressed. VIS edition date: January 02, 2021. Intake: 01:55 IV: 100ml; Total: 100ml. bm8 04:06 IV: 500ml; Total: 600ml. bm8 Outcome: 04:24 Discharge ordered by . sp4 04:35 Discharged to home ambulatory, bm8 04:35 Condition: stable 04:35 Discharge instructions given to patient, Instructed on discharge instructions, follow up and referral plans. Demonstrated understanding of instructions, follow-up care, medications, Prescriptions given X 4, 04:36 Patient left the ED. bm8 Signatures: Dispatcher [employer] EDDivya Ellison RN RN lg3 Gabby Ramírez Sergey, MD MD sp4 Mumtaz Cuba RN RN bm8 JULIETA MILLIGAN RN RN dd2
--- NOTE | 2024-07-17 04:25 | EDPHYS ---
Physician Documentation [facility] Name: Solis Boone Age: 39 yrs Sex: Male : 1985 Arrival Date: 07/17/2024 Time: 00:06 Bed 8 Private MD: ED Physician Valentin Saab HPI: 07/17 00:08 This 39 yrs old Male presents to ER via Unassigned with complaints of Finger Injury. sp4 22:19 39-year-old male presents with moderate right index finger swelling redness and sp4 associated pain. 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 22:21 Moderate to severe pain right index finger associated with swelling and decreased range sp4 of motion. 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 - Infectious Disease History:: Denies. - Social history:: Smoking status: Reported history of juuling and/or vaping. Patient uses alcohol, occasionally. Patient/guardian denies using street drugs. - Family history:: not pertinent. ROS: 22:21 Constitutional: Negative for fever, chills, and weight loss, positive right index sp4 finger swelling, tenderness, decreased range of motion, redness, 22:21 All other systems are negative, Exam: 22:21 Constitutional: This is a well developed, well nourished patient who is awake, alert, sp4 and in no acute distress. Head/Face: Normocephalic, atraumatic. Eyes: Pupils equal round and reactive to light, extra-ocular motions intact. Lids and lashes normal. Conjunctiva and sclera are not injected. Cornea within normal limits. Periorbital areas with no swelling, redness, or edema. ENT: Nares patent. No nasal discharge, no septal abnormalities noted. Tympanic membranes are normal and external auditory canals are clear. Oropharynx with no redness, swelling, or masses, exudates, or evidence of obstruction, uvula midline. Mucous membranes moist. Neck: Trachea midline, no thyromegaly or masses palpated, and no cervical lymphadenopathy. Supple, full range of motion without nuchal rigidity, or vertebral point tenderness. Chest/axilla: Normal chest wall appearance and motion. Nontender with no deformity. No lesions are appreciated. Cardiovascular: Regular rate and rhythm with a normal S1 and S2. No gallops, murmurs, or rubs. Normal PMI, no JVD. No pulse deficits. Respiratory: Lungs have equal breath sounds bilaterally, clear to auscultation and percussion. No rales, rhonchi or wheezes noted. No increased work of breathing, no retractions or nasal flaring. Abdomen/GI: Soft, with normal bowel sounds. No distension or tympany. No guarding or rebound. No evidence of tenderness throughout. Back: No spinal tenderness. No costovertebral tenderness. Skin: Warm, dry with normal turgor. Normal color with no rashes, no lesions, and no evidence of cellulitis. MS/ Extremity: Pulses equal, no cyanosis. Neurovascular intact. Right index finger there is significant swelling redness tenderness consistent with cellulitis and infection. There is decreased range of motion there is no deformity. Neuro: Awake and alert, GCS 15, oriented to person, place, time, and situation. Cranial nerves II-XII grossly intact. Motor strength 5/5 in all extremities. Sensory grossly intact. Psych: Awake, alert, with orientation to person, place and time. Behavior, mood, and affect are within normal limits Vital Signs: 00:18 BP 153 / 86; Pulse 106; Resp 17 S; Temp 98.4(O); Pulse Ox 100% on R/A; Weight 95.25 kg lg3 (R); Height 6 ft. 2 in. (R); Pain 5/10; 01:16 BP 123 / 86; Pulse 93; Resp 17; Temp 98.4; Pulse Ox 100% ; Pain 7/10; bm8 03:11 BP 134 / 89; Pulse 74; Resp 17; Temp 98.4; Pulse Ox 98% ; Pain 0/10; bm8 04:06 BP 141 / 94; Pulse 81; Resp 16; Temp 98.4; Pulse Ox 100% ; Pain 0/10; bm8 00:18 Body Mass Index 26.96 (95.25 kg, 187.96 cm) lg3 00:18 Pain Scale: Adult lg3 01:16 Pain Scale: Adult bm8 03:11 Pain Scale: Adult bm8 04:06 Pain Scale: Adult bm8 [place] Coma Score: 01:16 Eye Response: spontaneous(4). Motor Response: obeys commands(6). Verbal Response: bm8 oriented(5). Total: 15. 03:11 Eye Response: spontaneous(4). Motor Response: obeys commands(6). Verbal Response: bm8 oriented(5). Total: 15. 04:06 Eye Response: spontaneous(4). Motor Response: obeys commands(6). Verbal Response: bm8 oriented(5). Total: 15. 22:21 Eye Response: spontaneous(4). Motor Response: obeys commands(6). Verbal Response: sp4 oriented(5). Total: 15. 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 COMPARISON: None. FINDINGS: 3 X-ray views of the right hand (frontal, lateral and oblique projections) were performed. Bones: No areas of acute bony injuries were demonstrated. Carpal bones demonstrate to be unremarkable. Soft tissues: Questionable very minimal soft tissue swelling dorsal aspect of the hand at the metacarpal area. Joints: No gross articular abnormality is identified. Others: There are no gross intraosseous lesions. No periosteal reaction were seen. No radiopaque foreign body. IMPRESSION: No acute bony injuries were demonstrated. Questionable very minimal soft tissue swelling dorsal aspect of the hand at the metacarpal area. Electronically signed by: Fab Byrd MD 07/17/2024 03:06 AM . 22:22 Differential diagnosis: extremity fracture, Cellulitis, tenosynovitis. Data reviewed: sp4 vital signs, nurses notes, lab test result(s), radiologic studies, plain films. Consideration of Admission/Observation Escalation of care including admission/observation considered. ED course: Patient has normal capillary refill of the right index finger. No sign of vascular compromise. Patient stable for discharge home with p.o. Bactrim and cephalexin for the next 10 days. Return to ER precaution advised in case of worsening condition.. 07/17 00:47 Order name: Blood Culture Adult (2) 8 07/17 00:47 Order name: CBC with Diff; Complete Time: 04:17 07/17 00:47 Order name: CMP; Complete Time: 04:17 07/17 00:47 Order name: Lactate w/ 2H reflex if indic.; Complete Time: 04:17 8 07/17 00:47 Order name: Protime (+inr); Complete Time: 04:17 8 07/17 00:47 Order name: Ptt, Activated; Complete Time: 04:17 8 07/17 00:48 Order name: CK; Complete Time: 04:17 sp4 07/17 00:49 Order name: Hand Right 3 View XRAY 4 07/17 00:47 Order name: EKG; Complete Time: 00:47 07/17 00:47 Order name: Cardiac monitoring; Complete Time: 00:47 07/17 00:47 Order name: IV Saline Lock - Large Bore; Complete Time: 00:47 07/17 00:47 Order name: Labs collected and sent; Complete Time: 00:47 07/17 00:47 Order name: O2 Per Protocol; Complete Time: 00:47 07/17 00:47 Order name: O2 Sat Monitoring; Complete Time: 00:47 07/17 00:47 Order name: Vital Signs; Complete Time: 00:47 bm8 Administered Medications: 01:12 Drug: Cefepime IVPB 2 grams IVPB at 200 ml/hr once over 30 mins; (mix in NS 100 mL) bm8 Route: IVPB; Rate: 200 ml/hr; Infused Over: 30 mins; Site: left antecubital; 01:55 Follow up: Response: No adverse reaction; IV Status: Completed infusion; IV Intake: bm8 100ml 01:12 Drug: Ketorolac IVP 30 mg IVP once Route: IVP; Site: left antecubital; bm8 03:13 Follow up: Response: No adverse reaction bm8 01:12 Drug: Ondansetron IVP 4 mg IVP once; over 2 minutes Route: IVP; Site: left antecubital; bm8 03:13 Follow up: Response: No adverse reaction bm8 01:56 Drug: vancoMYCIN IVPB 2 grams IVPB at calculated rate once Route: IVPB; Rate: bm8 calculated rate; Site: left antecubital; 04:06 Follow up: Response: No adverse reaction; IV Status: Completed infusion; IV Intake: bm8 500ml 04:35 Drug: Boostrix Tdap IM 0.5 ml IM once; as a single dose Route: IM; Site: left deltoid; bm8 04:35 Follow up: Response: No adverse reaction; Medication Administered at Departure bm8 Disposition: 22:23 Chart complete. sp4 Disposition Summary: 07/17/24 04:24 Discharge Ordered Notes: Location: Home sp4 Problem: new sp4 Symptoms: have improved sp4 Condition: Stable sp4 Diagnosis - Right hand Cellulitis , Infection Right index finger sp4 - Infected puncture wound right index finger sp4 Followup: sp4 - With: Private Physician - When: 7 - 10 days - Reason: Recheck today's complaints Discharge Instructions: - Discharge Summary Sheet sp4 - Cellulitis, Adult, [id number] sp4 Forms: - Patient Portal Instructions sp4 Prescriptions: - Cephalexin 500 mg Oral Capsule - take 1 capsule ORAL route every 6 hours for 10 days; 40 capsule; Refills: 0, sp4 Product Selection Permitted - Ibuprofen 800 mg Oral Tablet - take 1 tablet ORAL route every 8 hours As needed take with food; 30 tablet; sp4 Refills: 0, Product Selection Permitted - Bactrim DS 800-160 mg Oral Tablet - take 1 tablet ORAL route every 12 hours for 10 days; 20 tablet; Refills: 0, sp4 Product Selection Permitted - ondansetron 8 mg Oral Tablet,disintegrating - take 1 tablet ORAL route every 8 hours PRN nausea; 30 tablet; Refills: 0, sp4 Product Selection Permitted Signatures: Dispatcher [employer] EDDivya Ellison, RN RN lg3 Valentin Saab MD MD sp4 Mumtaz Cuba RN RN bm8 Corrections: (The following items were deleted from the chart) 00:47 00:47 BLOOD CULTURE*+BA.LAB.BRZ ordered. EDMS EDMS 00:47 00:47 CBC+H.LAB.BRZ ordered. EDMS EDMS 00:47 00:47 COMPREHENSIVE METABOLIC PANEL+C.LAB.BRZ ordered. EDMS EDMS 00:47 00:47 LACTATE+C.LAB.BRZ ordered. EDMS EDMS 00:47 00:47 PROTIME (+INR)+COAG.LAB.BRZ ordered. EDMS EDMS 00:47 00:47 PTT, ACTIVATED+COAG.LAB.BRZ ordered. EDMS EDMS 00:48 00:48 CREATINE PHOSPHOKINASE+C.LAB.BRZ ordered. EDMS EDMS
[2024-07-17] MEDS ORDERED: TDAP (DIPHTH,PERTUSS(ACELL),TET VAC) 0.5 ML VIAL IMVAC ONE (04:26)
--- NOTE | 2024-07-17 05:04 | RAD REPORT ---
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 COMPARISON: None. FINDINGS: 3 X-ray views of the right hand (frontal, lateral and oblique projections) were performed. Bones: No areas of acute bony injuries were demonstrated. Carpal bones demonstrate to be unremarkable . Soft tissues: Questionable very minimal soft tissue swelling dorsal aspect of the hand at the metacar pal area. Joints: No gross articular abnormality is identified. Others: There are no gross intraosseous lesions. No periosteal reaction were seen. No radiopaque foreign body. IMPRESSION: No acute bony injuries were demonstrated. Questionable very minimal soft tissue swelling dorsal aspect of the hand at the metacarpal area. Electronically signed by: Fab Byrd MD 07/17/2024 03:06 AM HAND THERAPIST Due to temporary technical issues with the PACS/Popset reporting system, reports are being barbara d by the in-house radiologist without review as a courtesy to ensure prompt reporting the interpreting radiologist is fully responsible for the content of the report. Transcribed Date/Time: 07/17/2024 5:04 AM
[2024-07-17 06:45] VITALS: TEMP 98.4
[2024-07-17 06:50] VITALS: BP 141/94; O2SAT 100
== END 2024-07-17 04:36 | disposition home or self-care (01) ==
LOC: ER 00:06
DX: L03.011 Cellulitis of right finger (principal)
CPT/HCPCS: 36415; 80053; 82550; 83605; 85025; 85610; 85730; 87040; J0692; J2405; J7040